=== PATIENT | male | born 1950 | race Caucasian/White ===

== ENCOUNTER 2021-09-26 12:02 | Inpatient (IN) ==
[2021-09-26] MEDS ORDERED: Iopamidol - 370 500 ML MLS IVP ONE (12:43)
[2021-09-26] MEDS ORDERED: Famotidine 20 MG/2 ML VIAL IVP ONE (12:49)
[2021-09-26] MEDS ORDERED: Pantoprazole 40 MG VIAL IVP ONE (12:49)
[2021-09-26 13:13] LABS: Basophils % 0.3 %; Eosinophils % 0.4 %; Hematocrit 46.2 % (37.5-50.1); Hemoglobin 15.7 g/dL (12.9-16.9); Immature Granulocytes % 0.3 % (0-4); Lymphocytes # 0.6 K/mcL (0.6-4.6); Lymphocytes % 6.7 %; Mean Corpuscular Hemoglobin 29.6 pg (28.0-33.3); Mean Corpuscular Volume 87.2 fL (83.0-100.0); Mean Platelet Volume 10.6 fL (9.4-12.4); Monocytes # 0.7 K/mcL (0.0-1.3); Monocytes % 7.2 %; Neutrophils # 7.8 K/mcL (1.6-8.9); Platelet Count 169 K/mcL (140-400); Segmented Neutrophils % 85.1 %; White Blood Count 9.2 K/mcL (4.3-11.1)
[2021-09-26 13:21] LABS: INR 1.1
[2021-09-26 14:43] LABS: Alanine Aminotransferase 24 Units/L (7-52); Albumin/Globulin Ratio 1.5 (1.1-2.2); Alkaline Phosphatase 105 Units/L (34-104); Aspartate Amino Transferase 60 Units/L (13-39); BUN/Creatinine Ratio 15 (6-26); Bilirubin,Direct 0.6 mg/dL (0.0-0.2); Bilirubin,Indirect 0.7 mg/dL (0.0-1.0); Bilirubin,Total 1.3 mg/dL (0.3-1.0); Blood Urea Nitrogen 18 mg/dL (8-23); Calcium 9.1 mg/dL (8.6-10.3); Carbon Dioxide 26 mEq/L (23-29); Chloride 105 mEq/L (98-107); Globulin 2.6 g/dL (2.4-3.5); Glucose 132 mg/dL (70-105); Osmolality,Calculated 292 (280-300); Potassium 3.3 mEq/L (3.5-5.1); Sodium 139 mEq/L (136-145); Total Protein 6.6 g/dL (6.4-8.9); Troponin I < 0.03 ng/mL (< 0.04); eGFR For African Americans > 60 (> 60); eGFR For Non-African Americans > 60 (> 60)
[2021-09-26 16:11] LABS: Lipase > 1800 Units/L (11-82)
[2021-09-26] MEDS ORDERED: Ondansetron 4 MG/2 ML VIAL IVP PRN ×2 (16:18→18:05)
[2021-09-26] MEDS ORDERED: Morphine Sulfate 2 MG/ML SYRINGE IVP ONE (16:18)
[2021-09-26] MEDS ORDERED: 0.9 % Sodium Chloride 1,000 ML IV ONE (16:55)
[2021-09-26] MEDS ORDERED: Ringers Solution, Lactated 1,000 ML IVC ONE (17:23)
[2021-09-26] MEDS ORDERED: Melatonin 3 MG TABLET PO PRN (18:05)
[2021-09-26] MEDS ORDERED: Naloxone 0.4 MG/ML INJ IVP PRN (18:05)
[2021-09-26] MEDS ORDERED: Acetaminophen 325 MG TABLET PO PRN (18:05)
[2021-09-26] MEDS ORDERED: Ketorolac 30 MG/ML VIAL IM PRN (18:05)
[2021-09-26] MEDS: Ringers Solution, Lactated 1,000 ML IVC SCH (22:15)
[2021-09-27 01:45] LABS: Hematocrit 43.8 % (37.5-50.1); Hemoglobin 14.9 g/dL (12.9-16.9); Mean Corpuscular Hemoglobin 29.9 pg (28.0-33.3); Mean Platelet Volume 10.6 fL (9.4-12.4); Platelet Count 147 K/mcL (140-400); Red Blood Count 4.98 M/mcL (4.19-5.50); White Blood Count 5.7 K/mcL (4.3-11.1)
[2021-09-27 02:04] LABS: BUN/Creatinine Ratio 15 (6-26); Blood Urea Nitrogen 17 mg/dL (8-23); Calcium 9.1 mg/dL (8.6-10.3); Carbon Dioxide 30 mEq/L (23-29); Chloride 104 mEq/L (98-107); Glucose 96 mg/dL (70-105); Magnesium 1.9 mg/dL (1.6-2.6); Osmolality,Calculated 291 (280-300); Potassium 3.5 mEq/L (3.5-5.1); Sodium 140 mEq/L (136-145); eGFR For African Americans > 60 (> 60); eGFR For Non-African Americans > 60 (> 60)
[2021-09-27] MEDS: Ringers Solution, Lactated 1,000 ML IVC SCH ×2 (03:45→05:37)
[2021-09-27] MEDS: 0.9 % Sodium Chloride 1,000 ML IVC SCH ×4 (08:58→21:07)
[2021-09-27] MEDS: Piperacillin/Tazobactam 3.375 GM in 0.9 % Sodium Chloride Mini Bag 100 ML IVPB SCH ×2 (08:58→15:22)
[2021-09-27 09:19] LABS: Albumin 3.8 g/dL (3.5-5.7); Albumin/Globulin Ratio 1.7 (1.1-2.2); Bilirubin,Direct 0.2 mg/dL (0.0-0.2); Bilirubin,Indirect 0.8 mg/dL (0.0-1.0); Globulin 2.3 g/dL (2.4-3.5); Total Protein 6.1 g/dL (6.4-8.9)
[2021-09-28] MEDS: Piperacillin/Tazobactam 3.375 GM in 0.9 % Sodium Chloride Mini Bag 100 ML IVPB SCH ×3 (00:02→15:56)
[2021-09-28] MEDS: 0.9 % Sodium Chloride 1,000 ML IVC SCH (03:51)
[2021-09-28 04:22] LABS: Alanine Aminotransferase 31 Units/L (7-52); Albumin 3.4 g/dL (3.5-5.7); Albumin/Globulin Ratio 1.6 (1.1-2.2); Alkaline Phosphatase 87 Units/L (34-104); Aspartate Amino Transferase 24 Units/L (13-39); BUN/Creatinine Ratio 12 (6-26); Bilirubin,Direct 0.2 mg/dL (0.0-0.2); Bilirubin,Indirect 0.5 mg/dL (0.0-1.0); Bilirubin,Total 0.7 mg/dL (0.3-1.0); Blood Urea Nitrogen 11 mg/dL (8-23); Calcium 8.3 mg/dL (8.6-10.3); Carbon Dioxide 27 mEq/L (23-29); Chloride 109 mEq/L (98-107); Globulin 2.1 g/dL (2.4-3.5); Glucose 100 mg/dL (70-105); Lipase 40 Units/L (11-82); Osmolality,Calculated 289 (280-300); Potassium 3.4 mEq/L (3.5-5.1); Sodium 140 mEq/L (136-145); Total Protein 5.5 g/dL (6.4-8.9); eGFR For African Americans > 60 (> 60); eGFR For Non-African Americans > 60 (> 60)
[2021-09-28] MEDS ORDERED: *HR* Propofol 200 MG/20 ML VIAL IVP ONE (09:24)
[2021-09-28] MEDS ORDERED: *HR* Midazolam HCl 2 MG/2 ML VIAL ONE (09:24)
[2021-09-28] MEDS ORDERED: *HR* FentaNYL (PF) 100 MCG/2 ML VIAL ONE (09:24)
[2021-09-28] MEDS ORDERED: Lidocaine HCL 4 ML Topical Solution (Laryng-O-Jet Kit Sterile Pak) TP ONE (09:35)
[2021-09-28] MEDS ORDERED: Lidocaine -MPF 2% 2 ML VIAL ONE (09:35)
[2021-09-28] MEDS ORDERED: *HR* Rocuronium Bromide 50 MG/5 ML VIAL ONE (09:35)
[2021-09-28] MEDS ORDERED: Ondansetron 4 MG/2 ML VIAL ONE (09:35)
[2021-09-28] MEDS ORDERED: Ondansetron 4 MG/2 ML VIAL IVP PRN ×2 (10:16→13:36)
[2021-09-28] MEDS ORDERED: Albuterol 2.5 MG/3 ML NEBULIZER IH PRN ×2 (10:16→13:36)
[2021-09-28] MEDS ORDERED: Iopamidol - 300 100 ML INFUS..BTL ONE (11:22)
[2021-09-28] MEDS ORDERED: Acetaminophen IV 1,000 MG/100 ML BAG IVPB ONE (11:45)
[2021-09-28] MEDS ORDERED: *HR* Labetalol 20 MG/4 ML SYRINGE IVP ONE (12:04)
[2021-09-28] MEDS: *HR* HYDROmorphone PF 0.5 MG/0.5 ML SYRINGE IVP PRN ×2 (12:41→12:50)
[2021-09-28] MEDS ORDERED: Naloxone 0.4 MG/ML INJ IVP PRN (13:36)
[2021-09-28] MEDS ORDERED: Melatonin 3 MG TABLET PO PRN (13:36)
[2021-09-28] MEDS ORDERED: Acetaminophen 325 MG TABLET PO PRN (13:36)
[2021-09-28] MEDS ORDERED: Ketorolac 30 MG/ML VIAL IM PRN (13:36)
[2021-09-28 17:00] VITALS: O2SAT 93
[2021-09-29] MEDS: Piperacillin/Tazobactam 3.375 GM in 0.9 % Sodium Chloride Mini Bag 100 ML IVPB SCH ×2 (00:20→07:49)
[2021-09-29 01:53] LABS: Hematocrit 39.7 % (37.5-50.1); Hemoglobin 13.6 g/dL (12.9-16.9); Mean Corpuscular HGB Conc 34.3 g/dL (31.6-35.5); Mean Corpuscular Volume 87.6 fL (83.0-100.0); Mean Platelet Volume 10.7 fL (9.4-12.4); Platelet Count 177 K/mcL (140-400); Red Blood Count 4.53 M/mcL (4.19-5.50); Red Cell Distribution Width 12.8 % (11.5-14.5); White Blood Count 7.8 K/mcL (4.3-11.1)
[2021-09-29 02:05] LABS: Alanine Aminotransferase 40 Units/L (7-52); Albumin 3.8 g/dL (3.5-5.7); Albumin/Globulin Ratio 1.7 (1.1-2.2); Alkaline Phosphatase 103 Units/L (34-104); Aspartate Amino Transferase 33 Units/L (13-39); BUN/Creatinine Ratio 12 (6-26); Bilirubin,Direct 0.1 mg/dL (0.0-0.2); Bilirubin,Indirect 0.5 mg/dL (0.0-1.0); Bilirubin,Total 0.6 mg/dL (0.3-1.0); Blood Urea Nitrogen 11 mg/dL (8-23); Calcium 8.7 mg/dL (8.6-10.3); Carbon Dioxide 23 mEq/L (23-29); Chloride 106 mEq/L (98-107); Globulin 2.3 g/dL (2.4-3.5); Glucose 125 mg/dL (70-105); Osmolality,Calculated 287 (280-300); Potassium 3.6 mEq/L (3.5-5.1); Sodium 138 mEq/L (136-145); Total Protein 6.1 g/dL (6.4-8.9); eGFR For African Americans > 60 (> 60); eGFR For Non-African Americans > 60 (> 60)
[2021-09-29 07:31] VITALS: BP 155/70; PULSE 81; TEMP 98
== END 2021-09-29 11:00 | disposition home or self-care (01) | DRG 418 ==
LOC: EMEROOARM 12:02 → 3ANU 12:02 → SUATTDRO 18:05 → 3ANU 18:26
PROVIDERS: ADMIT Internal Medicine; ATTEND Internal Medicine